=== PATIENT | male | born 2000 | race Caucasian/White ===

== ENCOUNTER 2023-10-16 07:45 | Inpatient (IN) | payer SELFPAY ==
[~2023-10-16] VITALS: Ht 185.4 cm; Wt 85.7 kg
[2023-10-16 07:55] VITALS: BP 156/74; PULSE 99; RESP 16; TEMP 97; O2SAT 99
[2023-10-16] MEDS ORDERED: KETOROLAC 30 MG/ML VIAL IM ONE (08:15)
[2023-10-16] MEDS ORDERED: NACL 0.9% 1,000 ML IV SCH (09:30)
[2023-10-16] MEDS ORDERED: HYDROcodone/APAP 5/325 MG 1 TAB TAB PO PRN ×2 (09:30→11:05)
[2023-10-16] MEDS ORDERED: MORPHINE SULFATE 2 MG/ML SYR IVP PRN (09:30)
[2023-10-16] MEDS ORDERED: ONDANSETRON 4 MG/2 ML VIAL IVP PRN ×2 (09:30→11:05)
[2023-10-16] MEDS ORDERED: ACETAMINOPHEN 325 MG TAB PO PRN (11:05)
[2023-10-16] MEDS: MORPHINE SULFATE 2 MG/ML SYR IVP PRN (15:48)
[2023-10-16] MEDS: NACL 0.9% 1,000 ML IV SCH (15:54)
[2023-10-16 17:00] VITALS: RESP 18; O2SAT 98
[2023-10-16 20:00] VITALS: BP 139/67; PULSE 77; RESP 22; TEMP 98.4; O2SAT 99
[2023-10-17 04:00] VITALS: BP 138/79; PULSE 75; RESP 18; TEMP 98.6; O2SAT 99
[2023-10-17 05:08] LABS: BASOPHILS % (AUTO) 0.1 % (0.0-2.0); EOSINOPHILS # (AUTO) 0.1 K/uL (0-0.4); EOSINOPHILS % (AUTO) 0.7 % (0.0-4.0); HEMATOCRIT 39.9 % (36-52); HEMOGLOBIN 13.7 g/dL (12.0-18.0); LYMPHOCYTES # (AUTO) 1.6 K/uL (2.0-11.5); LYMPHOCYTES % (AUTO) 13.4 % (20.5-51.1); MEAN CORPUSCULAR HEMOGLOBIN 30 pg (27-31); MEAN CORPUSCULAR HGB CONC 34 g/dL (33-37); MEAN CORPUSCULAR VOLUME 87.9 fL (80-94); MONOCYTES # (AUTO) 0.9 K/uL (0.8-1.0); MONOCYTES % (AUTO) 7.8 % (1.7-9.3); PLATELET COUNT (AUTO) 234 K/uL (140-450); RED BLOOD CELL COUNT(AUTO) 4.53 MIL/uL (4.20-6.10); RED CELL DISTRIBUTION WIDTH 12.8 % (11.6-13.7); WHITE BLOOD COUNT (AUTO) 11.6 K/uL (4.8-10.8)
[2023-10-17 05:22] LABS: ANION GAP 10.2 (8-16); CALCIUM 8.7 mg/dL (8.5-10.1); CARBON DIOXIDE 29.4 mmol/L (21-32); POTASSIUM 3.6 mmol/L (3.5-5.1)
[2023-10-17] MEDS: NACL 0.9% 1,000 ML IV SCH (05:50)
[2023-10-17 08:00] VITALS: BP 131/81; PULSE 92; RESP 16; TEMP 98.4; O2SAT 98
[2023-10-17] MEDS ORDERED: BUPIVACAINE-MPF 0.25% 30 ML VIAL INJ ONE ×2 (11:51→13:01)
[2023-10-17] MEDS ORDERED: MIDAZOLAM 2 MG/2 ML VIAL ONE (11:54)
[2023-10-17] MEDS ORDERED: fentaNYL citrate 0.05 MG/ML VIAL ONE (11:55)
[2023-10-17] MEDS ORDERED: SEVOFLURANE 250 ML BTL INH ONE (11:55)
[2023-10-17] MEDS ORDERED: ceFAZolin 2,000 MG VIAL ONE (11:58)
[2023-10-17] MEDS ORDERED: TRANEXAMIC ACID 1,000 MG/10 ML VIAL ONE (11:58)
[2023-10-17] MEDS ORDERED: ONDANSETRON 4 MG/2 ML VIAL ONE (12:08)
[2023-10-17] MEDS ORDERED: PROPOFOL 200 MG/20 ML VIAL IV ONE (12:08)
[2023-10-17] MEDS ORDERED: LIDOCAINE MPF 2% 100 MG/5 ML VIAL INJ ONE (12:09)
[2023-10-17] MEDS ORDERED: METOCLOPRAMIDE 10 MG/2 ML INJ VIAL ONE (12:09)
[2023-10-17] MEDS ORDERED: VANCOMYCIN 1,000 MG VIAL ONE (12:52)
[2023-10-17] MEDS: LACTATED RINGERS 1,000 ML IV SCH ×2 (13:10→21:30)
[2023-10-17] MEDS ORDERED: HYDROmorphone 1 MG/ML AMP IVP PRN (13:10)
[2023-10-17] MEDS ORDERED: MEPERIDINE 25 MG/ML SYR IVP PRN (13:10)
[2023-10-17] MEDS ORDERED: ONDANSETRON 4 MG/2 ML VIAL IVP PRN (13:10)
[2023-10-17] MEDS ORDERED: diphenhydrAMINE 50 MG/ML VIAL IVP PRN (13:10)
[2023-10-17] MEDS ORDERED: KETOROLAC 60 MG/2 ML VIAL IM ONE (14:24)
[2023-10-17 16:00] VITALS: BP 131/84; PULSE 90; RESP 18; TEMP 98; O2SAT 99
[2023-10-17 20:00] VITALS: PULSE 85; RESP 18; O2SAT 98
[2023-10-18] VITALS: BP 130/72; PULSE 82; RESP 18; TEMP 98.3; O2SAT 97
[2023-10-18] MEDS: NACL 0.9% 1,000 ML IV SCH ×2 (03:05→23:09)
[2023-10-18] MEDS: MORPHINE SULFATE 2 MG/ML SYR IVP PRN ×2 (03:06→19:02)
[2023-10-18] MEDS: LACTATED RINGERS 1,000 ML IV SCH (05:50)
[2023-10-18 08:00] VITALS: BP_SYST 143; BP_DIAS 80; BP_DIAS 88; PULSE 82; PULSE 87; RESP 18; TEMP 98.7; TEMP 99.3; O2SAT 100; O2SAT 98
[2023-10-18] MEDS: ECOTRIN 81 MG TABEC PO SCH ×2 (09:48→20:05)
[2023-10-18 10:12] LABS: BASOPHILS % (AUTO) 0.3 % (0.0-2.0); EOSINOPHILS # (AUTO) 0.1 K/uL (0-0.4); EOSINOPHILS % (AUTO) 0.9 % (0.0-4.0); HEMATOCRIT 36.6 % (36-52); HEMOGLOBIN 12.7 g/dL (12.0-18.0); LYMPHOCYTES # (AUTO) 1.8 K/uL (2.0-11.5); MEAN CORPUSCULAR HEMOGLOBIN 31 pg (27-31); MEAN CORPUSCULAR HGB CONC 35 g/dL (33-37); MEAN CORPUSCULAR VOLUME 87.7 fL (80-94); MONOCYTES # (AUTO) 1.1 K/uL (0.8-1.0); MONOCYTES % (AUTO) 10.7 % (1.7-9.3); NEUTROPHILS # (AUTO) 7.5 K/uL (1.8-7.7); NEUTROPHILS % (AUTO) 71.1 % (42.2-75.2); PLATELET COUNT (AUTO) 218 K/uL (140-450); RED BLOOD CELL COUNT(AUTO) 4.17 MIL/uL (4.20-6.10); RED CELL DISTRIBUTION WIDTH 12.5 % (11.6-13.7); WHITE BLOOD COUNT (AUTO) 10.5 K/uL (4.8-10.8)
[2023-10-18 10:39] LABS: ANION GAP 11.6 (8-16); CALCIUM 8.4 mg/dL (8.5-10.1); CARBON DIOXIDE 27.9 mmol/L (21-32); CREATININE 0.9 mg/dL (0.6-1.3); POTASSIUM 3.5 mmol/L (3.5-5.1)
[2023-10-18 16:00] VITALS: BP 143/88; PULSE 87; RESP 18; TEMP 99.3; O2SAT 100
[2023-10-18 20:00] VITALS: PULSE 87; RESP 16; O2SAT 98
[2023-10-18] MEDS: ZOLPIDEM 5 MG TAB PO SCH (20:05)
[2023-10-18] MEDS ORDERED: ZOLPIDEM 5 MG TAB PO SCH (21:00)
[2023-10-19 08:00] VITALS: BP 142/80; PULSE 86; RESP 18; TEMP 97.9; O2SAT 97
[2023-10-19] MEDS: ECOTRIN 81 MG TABEC PO SCH ×2 (08:43→20:40)
[2023-10-19] MEDS: MORPHINE SULFATE 2 MG/ML SYR IVP PRN (14:49)
[2023-10-19 16:00] VITALS: BP 146/87; PULSE 78; RESP 18; TEMP 98.6; O2SAT 99
[2023-10-19] MEDS: NACL 0.9% 1,000 ML IV SCH (19:16)
[2023-10-19 20:00] VITALS: BP 154/83; PULSE 93; RESP 18; TEMP 97.2; O2SAT 99
[2023-10-19] MEDS: ZOLPIDEM 5 MG TAB PO SCH (20:39)
[2023-10-20 06:14] LABS: ANION GAP 12.1 (8-16); CALCIUM 9.3 mg/dL (8.5-10.1); CREATININE 0.8 mg/dL (0.6-1.3); POTASSIUM 4.1 mmol/L (3.5-5.1)
[2023-10-20 08:00] VITALS: BP 149/74; PULSE 89; RESP 20; TEMP 97.8; O2SAT 98
[2023-10-20] MEDS: ECOTRIN 81 MG TABEC PO SCH (09:31)
[2023-10-20] MEDS ORDERED: ACET-9525 PO (10:51)
[2023-10-20 12:38] VITALS: BP 149/74; PULSE 20; RESP 20; TEMP 97.8
== END 2023-10-20 15:15 | disposition home or self-care (01) | DRG 494 ==
LOC: MED 07:45 → MMU 09:30 → MTU 15:10
PROVIDERS: ADMIT Family Medicine; ATTEND Family Medicine
PROC: 0QSKXZZ Reposition Left Fibula, External Approach (ICD-10-PCS; 2023-10-17)
PROC: 0QSH04Z Reposition Left Tibia with Internal Fixation Device, Open Approach (ICD-10-PCS; principal; 2023-10-17 12:00)
DX: S82.202A Unspecified fracture of shaft of left tibia, initial encounter for closed fracture (principal); S82.402A Unspecified fracture of shaft of left fibula, initial encounter for closed fracture; W18.39XA Other fall on same level, initial encounter; Y93.89 Activity, other specified; Y92.89 Other specified places as the place of occurrence of the external cause; Y99.8 Other external cause status
CPT/HCPCS: 36415; 73590; 80048; 85025; 87081; 96361; 96372; 96374; 97110; 97112; 97116; 97163-GP; 97530; 99285; J0690; J1885; J2001; J2175; J2250; J2270; J2405; J2704; J2765; J3010; J3370; J3490; J7060; Q0092